=== PATIENT | male | born 1960 ===

== ENCOUNTER 2017-05-19 17:23 | Emergency (ER) | payer SELFPAY ==
[2017-05-19 17:26] VITALS: BP 146/108; PULSE 107; RESP 16; TEMP 98.5; O2SAT 100
--- NOTE | 2017-05-19 18:10 | ED PDOC ---
HPI: Psych/Substance Abuse <Rakel Pascual - Last Filed: 05/19/17 19:32> History Per: Patient History/Exam Limitations: intoxication Additional Complaint(s): Elliott Carmona, a 56 year old male presents to the Emergency Department drunk. Reports he is schizophrenic. Denies any other medical complaint. PMD: Non H Provider <Marybel Estrada José Miguel - Last Filed: 05/20/17 15:12> Time Seen by Provider: 05/19/17 17:34 Chief Complaint (Nursing): Alcohol Ingestion Past Medical History Vital Signs: Last Vital Signs Temp 98.5 F 05/19/17 17:24 Pulse 107 H 05/19/17 17:24 Resp 16 05/19/17 17:24 BP 146/108 H 05/19/17 17:24 Pulse Ox 100 05/19/17 19:25 <Rakel Pascual - Last Filed: 05/19/17 19:32> Reviewed: Historical Data, Nursing Documentation, Vital Signs Vital Signs: Last Vital Signs Temp 98.5 F 05/19/17 17:24 Pulse 107 H 05/19/17 17:24 Resp 16 05/19/17 17:24 BP 146/108 H 05/19/17 17:24 Pulse Ox 100 05/19/17 17:24 - Medical History PMH: No Chronic Diseases, Schizophrenia - Surgical History Surgical History: No Surg Hx - Family History Family History: States: Unknown Family Hx - Social History Current smoker - smoking cessation education provided: Yes Alcohol: Social Drugs: Denies <Marybel Estrada - Last Filed: 05/20/17 15:12> - Allergies Allergies/Adverse Reactions: Allergies Allergy/AdvReac Type Severity Reaction Status Date / Time No Known Allergies Allergy Verified 05/19/17 17:24 Review of Systems ROS Statement: Except As Marked, All Systems Reviewed And Found Negative Constitutional: Negative for: Fever, Chills Neurological: Positive for: Other (intoxicated) Psych: Positive for: Other (schizophrenic) <Marybel Estrada José Miguel - Last Filed: 05/20/17 15:12> Physical Exam - Reviewed Nursing Documentation Reviewed: Yes Vital Signs Reviewed: Yes - Physical Exam Appears: Positive for: Well, Non-toxic, No Acute Distress Head Exam: Positive for: ATRAUMATIC, NORMAL INSPECTION, NORMOCEPHALIC Skin: Positive for: Normal Color, Warm, Dry Eye Exam: Positive for: Normal appearance ENT: Positive for: Normal ENT Inspection Neck: Positive for: Normal, Painless ROM Cardiovascular/Chest: Positive for: Regular Rate, Rhythm. Negative for: Murmur Respiratory: Positive for: Normal Breath Sounds Extremity: Positive for: Normal ROM. Negative for: Deformity Neurologic/Psych: Positive for: Alert, Oriented (x3) <Marybel Estrada - Last Filed: 05/20/17 15:12> - ECG O2 Sat by Pulse Oximetry: 100 (RA) Pulse Ox Interpretation: Normal <Marybel Estrada - Last Filed: 05/20/17 15:12> Medical Decision Making Medical Decision Making: Time: 17:40 Initial Plan: --Alcohol Serum --Reevaluation Time:19:00 Patient will be signed out Dr. Pascual pending reevaluation. Scribe Attestation: Documented by Radha Real, acting as a scribe for Marybel Estrada MD Provider Scribe Attestation: All medical record entries made by the Scribe were at my direction and personally dictated by me. I have reviewed the chart and agree that the record accurately reflects my personal performance of the history, physical exam, medical decision making, and the department course for this patient. I have also personally directed, reviewed, and agree with the discharge instructions and disposition. <Marybel Estrada - Last Filed: 05/20/17 15:12> Disposition <Rakel Pascual - Last Filed: 05/19/17 19:32> - Disposition Disposition: Transfer of Care Disposition Time: 19:00 (Dr. Pascual) Patient Signed Over To: Rakel Pascual Handoff Comments: Pending sobriety. <Marybel Estrada - Last Filed: 05/20/17 15:12> - Clinical Impression Clinical Impression: Alcohol abuse with intoxication - Disposition Referrals: Alcoholics Anonymous [Outside] [facility] [Outside] Condition: STABLE Instructions: Alcohol Intoxication (ED), Abuse of Alcohol (ED) Forms: [employer] (Vietnamese)
--- NOTE | 2017-05-19 19:35 | ED PDOC ---
- ECG O2 Sat by Pulse Oximetry: 100 (RA) Pulse Ox Interpretation: Normal Medical Decision Making Medical Decision Making: Time:19:00 Patient was endorsed to me by Dr. Rowell. 2100 Pt alert and awake. Eager to be discharged. Ambulating without difficulty. No signs of withdrawal. Scribe Attestation: Documented by Radha Real, acting as a scribe for Rakel Pascual MD Provider Scribe Attestation: All medical record entries made by the Scribe were at my direction and personally dictated by me. I have reviewed the chart and agree that the record accurately reflects my personal performance of the history, physical exam, medical decision making, and the department course for this patient. I have also personally directed, reviewed, and agree with the discharge instructions and disposition. Disposition - Clinical Impression Clinical Impression: Alcohol abuse with intoxication - POA Present On Arrival: None - Disposition Referrals: [facility] [Outside] Alcoholics Anonymous [Outside] Disposition: Routine/Home Disposition Time: 21:32 Condition: IMPROVED Instructions: Alcohol Intoxication (ED), Abuse of Alcohol (ED) Forms: [employer] ([place]ish)
== END 2017-05-19 21:30 | disposition home or self-care (01) ==
LOC: H.ER 17:23
DX: F10.129 Alcohol abuse with intoxication, unspecified (principal)
CPT/HCPCS: 82948; 99283; G0480